=== PATIENT | female | born 1980 ===

== ENCOUNTER 2017-04-23 21:20 | Emergency (ER) | payer OTHER ==
[2017-04-23 21:29] VITALS: BP 116/62
--- NOTE | 2017-04-23 21:43 | UC ---
Eye Complaint HPI - HPI Summary HPI Summary: Pt c/o left eye redness with "goopy" discharge X 2 days. Pt states that she fell asleep with her contacts in and woke with crusted over eye and "goopy" Pt also c/o of IRI symptoms of nasal congestion and "bilateral "full " ears. - History of Current Complaint Chief Complaint: UCEye Stated Complaint: PINK EYE Time Seen by Provider: 04/23/17 21:39 Hx Obtained From: Patient Hx Last Menstrual Period: iud ?: No Onset/Duration: Sudden Onset, Lasting Days, Still Present Timing: Constant Severity Initially: Mild Severity Currently: Mild Aggravating Factor(s): Nothing Alleviating Factor(s): Nothing Associated Signs And Symptoms: Positive: Drainage (Purulent) - Allergies/Home Medications Allergies/Adverse Reactions: Allergies Allergy/AdvReac Type Severity Reaction Status Date / Time Hydrocodone Allergy Hives Verified 04/23/17 21:29 Penicillins [PCN] Allergy Anaphylatic Verified 04/23/17 21:29 Shock PMH/Surg Hx/FS Hx/Imm Hx Previously Healthy: Yes - Surgical History Surgical History: Yes Surgery Procedure, Year, and Place: gastric banding 2008. choley 05/31/16 - Family History Known Family History: Positive: Cardiac Disease - Social History Occupation: Employed Full-time Lives: With Family Alcohol Use: Occasionally Substance Use Type: None Smoking Status (MU): Never Smoked Tobacco Have You Smoked in the Last Year: No Review of Systems Constitutional: Negative Skin: Negative Eyes: Drainage, Eye Redness ENT: Ear Ache, Other - nasal congstion Respiratory: Negative Cardiovascular: Negative Gastrointestinal: Negative Genitourinary: Negative Motor: Negative Neurovascular: Negative Musculoskeletal: Negative Neurological: Negative Psychological: Negative Is Patient Immunocompromised?: No All Other Systems Reviewed And Are Negative: Yes Physical Exam Triage Information Reviewed: Yes Appearance: Well-Appearing Vital Signs: Initial Vital Signs Temp 98.1 F 04/23/17 21:23 Pulse 76 04/23/17 21:23 Resp 18 04/23/17 21:23 BP 116/62 04/23/17 21:23 Pulse Ox 100 04/23/17 21:23 Vital Signs Reviewed: Yes Eyes: Positive: Conjunctiva Inflamed, Discharge ENT Exam: Other ENT: Positive: Nasal congestion Dental Exam: Normal Neck exam: Normal Respiratory Exam: Normal Cardiovascular Exam: Normal Musculoskeletal Exam: Normal Neurological Exam: Normal Psychological Exam: Normal Skin Exam: Normal Eye Complaint Course/Dx - Differential Dx/Diagnosis Differential Diagnosis/HQI/PQRI: Conjunctivitis, Corneal Abrasion Provider Diagnoses: conjunctivitis. URI Discharge - Discharge Plan Condition: Stable Disposition: HOME Prescriptions: Polymyx/Trimethoprim OPTH* [Polytrim OPHTH*] 2 drop LEFT EYE Q8H #1 btl Patient Education Materials: Cold Symptoms (ED), Conjunctivitis (ED) Referrals: Alexander Foy [Primary Care Provider] - If Needed
== END 2017-04-23 21:47 | disposition home or self-care (01) ==
LOC: UCCORT 21:20
DX: H10.9 Unspecified conjunctivitis (principal); J06.9 Acute upper respiratory infection, unspecified; Z88.0 Allergy status to penicillin; Z88.5 Allergy status to narcotic agent
CPT/HCPCS: 99212; G0463